=== PATIENT | male | born 1960 | race Caucasian/White ===

== ENCOUNTER 2025-03-21 15:55 | Emergency (ER) | payer BC, SELFPAY ==
--- NOTE | ~2025-03-21 | CT_ITS ---
CLINICAL HISTORY: head injury CT cervical spine without contrast Comparison: None provided Findings: There is grade 1 anterolisthesis at C7-T1. Straightening of the cervical lordosis. Vertebral body height is maintained. No acute fracture in the cervical spine. Craniocervical junction is intact. Multilevel degenerative disc disease. Foraminal stenosis at C4-5, C5-6 and C6-7. No significant central canal stenosis. Prevertebral soft tissues within normal limits. Thyroid within normal limits. Atherosclerotic vascular disease. Lung apices are clear. IMPRESSION: 1. No acute fracture in the cervical spine. 2. Grade 1 anterolisthesis C7-T1. 3. Degenerative changes with bilateral foraminal stenosis at C4-5, C5-6 and C6-7. This document has been electronically signed by: Jodee Ram MD on 03/21/2025 18:02:18
--- NOTE | ~2025-03-21 | CT_ITS ---
CLINICAL HISTORY: head injury CT head without contrast Comparison: None provided Findings: No intra-axial mass, midline shift, hydrocephalus, or acute hemorrhage. There is mild cortical atrophy. Mild nonspecific supratentorial white matter hypodensities most suggestive of chronic small-vessel ischemic changes. Atherosclerotic vascular disease. There is a mucous retention cyst/polyp in the right maxillary sinus. 5 mm osteoma in right ethmoid air cells. The orbits are within normal limits. No acute skull fracture. IMPRESSION: 1. No acute intracranial findings. 2. Nonacute findings as described. This document has been electronically signed by: Jodee Ram MD on 03/21/2025 18:24:34
[2025-03-21 16:18] VITALS: BP 179/86; PULSE 69; RESP 20; TEMP 37; O2SAT 97; BMI 30.7
--- NOTE | 2025-03-21 16:26 | ED_ITS ---
HPI - General Adult General Chief complaint: Head Injury Stated complaint: head inj Time Seen by Provider: 03/21/25 18:34 Source: patient, RN notes reviewed and old records reviewed Mode of arrival: ambulatory Limitations: no limitations History of Present Illness ED Provider: Jennifer TINEO narrative: 65-year-old male presents for evaluation of a head injury. He reports that 5 days ago on Tuesday he was in a [employer] trailer and when he stood up he struck the top of his head on a metal bar. He reports seeing stars but did not lose consciousness, did not fall to the ground pain He has not nausea vomiting, blurry vision or confusion. He reports he has had a mild headache that has been improved with Tylenol He is not anticoagulated He denies any in his symptoms or pain He reports that his doctor is out of town so he could not follow up and he is driving to [place] this weekend so he would like to be evaluated No other complaints or concerns at this time Related Data Allergies Allergy/AdvReac Type Severity Reaction Status Date / Time No Known Allergies Allergy Verified 03/21/25 16:19 Review of Systems Constitutional: Constitutional: Denies anorexia, Denies body ache(s), Denies chills, Denies fever(s), Denies frequent falls and Reports headache(s) Eyes: Eyes: Denies blurry vision ENT: Denies vertigo, Denies dizziness, Denies dry mouth and Reports headache(s) Cardiovascular: Cardiovascular: Denies chest pain and Denies dyspnea on exertion Respiratory: Respiratory: Denies cough and Denies dyspnea on exertion Gastrointestinal: Gastrointestinal: Denies abdominal pain, Denies nausea and Denies vomiting Musculoskeletal: Musculoskeletal: Denies back pain Neurologic: Denies vertigo, Denies dizziness, Denies frequent falls and Reports headache(s) Psychiatric: Psychiatric: Denies anxiety PMFSH Social History Social History Advance Directives: No Advance Directives Information Provided: Yes Physical Exam ED Vital Signs: Vital Signs - 24 hr 03/21/25 16:18 03/21/25 18:29 03/21/25 19:25 Temperature 98.6 F 98.6 F 98.6 F Pulse Rate 69 63 63 Respiratory Rate 20 18 18 Blood Pressure 179/86 H 162/69 H 162/69 H Pulse Oximetry 97 95 95 Oxygen Delivery Method Room Air Room Air Room Air BMI result Body Mass Index 30.7 Const General: healthy appearing, comfortable, no acute distress, alert and awake Nutritional Appearance: well nourished Orientation/consciousness: patient oriented x3 HENMT Head: Yes normocephalic and Yes atraumatic Eyes Eyelids: Yes eyelids normal Conjunctivae: conjunctivae normal Sclerae: sclerae normal Corneas: corneas normal Pupils: Equal, round and reactive pupils present EOM: EOMs intact bilaterally Neck Neck: Yes full ROM Resp Effort & Inspection: normal respiratory effort, able to speak in complete sentences and not labored Cardio Rate: regular rate Rhythm: regular rhythm GI Inspection: No distended Palpation (GI): Soft to palpation, not firm, nontender, no guarding and not rigid Skin General skin exam: no rashes or lesions noted and elasticity normal Neuro General: patient oriented x3 Cranial nerves: Yes CN's II-XII intact bilaterally, Yes Equal, round and reactive pupils present and Yes Bilaterally intact EOM present Cognition (Neuro): normal cognition Extrem Other: Moving all extremities well without any obvious deformities Course Course Course Narrative: RME: 65 yold male presents to the ED for evaluation after head injury that occurred this past tuesday. patient hit Medical Decision Making Medical Decision Making MDM Narrative: 65-year-old male presents for evaluation of minor head injury with a happened 5 days ago. His physical exam is benign, he has an NIH stroke score of 0. He has no objective findings of trauma, no ecchymosis, wounds or abrasions. He did have a CT scan of the brain and CT of the cervical spine, both of which was unremarkable. Given that the patient's symptoms are mild, he has no neuro deficits in his injury was 5 days ago with normal imaging, the patient is stable for discharge. He is comfortable with this plan Differential Diagnosis Differential Diagnoses: The differential diagnosis associated with the presentation includes Minor head injury Concussion Intracranial hemorrhage Calvarial fracture Radiology Impression Discussion of test interpretation with radiology: I have reviewed the radiologist's reading. Radiologist Impression: Findings: No intra-axial mass, midline shift, hydrocephalus, or acute hemorrhage. There is mild cortical atrophy. Mild nonspecific supratentorial white matter hypodensities most suggestive of chronic small-vessel ischemic changes. Atherosclerotic vascular disease. There is a mucous retention cyst/polyp in the right maxillary sinus. 5 mm osteoma in right ethmoid air cells. The orbits are within normal limits. No acute skull fracture. IMPRESSION: 1. No acute intracranial findings. 2. Nonacute findings as described. This document has been electronically signed by: Jodee Ram MD on 03/21/2025 18:24:34 Findings: There is grade 1 anterolisthesis at C7-T1. Straightening of the cervical lordosis. Vertebral body height is maintained. No acute fracture in the cervical spine. Craniocervical junction is intact. Multilevel degenerative disc disease. Foraminal stenosis at C4-5, C5-6 and C6-7. No significant central canal stenosis. Prevertebral soft tissues within normal limits. Thyroid within normal limits. Atherosclerotic vascular disease. Lung apices are clear. IMPRESSION: 1. No acute fracture in the cervical spine. 2. Grade 1 anterolisthesis C7-T1. 3. Degenerative changes with bilateral foraminal stenosis at C4-5, C5-6 and C6-7. This document has been electronically signed by: Jodee Ram MD on 03/21/2025 18:02:18 Discharge Plan Discharge Clinical Impression: Closed head injury Patient Disposition: Home, Self-Care Instructions: Head Injury (ED) Additional Instructions: your CT scan did not show any evidence of traumatic brain injury. You also had a CT scan of your cervical spine is not show any abnormalities. You may continue ibuprofen/ Tylenol as needed for any headaches or pain pain Follow up with your primary doctor, return for new or worsening symptoms Interventions: ED Discharge Assessment Last Done: 03/21/25 19:25 Discharge Date/Time: 03/21/25 19:26 Print Language: Greek
[2025-03-21 18:29] VITALS: BP 162/69; PULSE 63; RESP 18; TEMP 37; O2SAT 95
--- OUTSIDE RECORDS SUMMARY | 2025-03-21 18:58 | XMS_ITS | Patient Health Record ---
Author Organization [facility] Address [address] [place] [address] Care Team Providers Care Private Equity Analyst Name Role Phone Sho Salinas MD Primary Care Provider Unav ailable Josue Jaimes Unavailable [phone] Allergies Allergen (clinical drug ingredient) Drug/Non Drug Allergy documented on EMR Reaction Allergy Type Onset Date Status povidone-iodine Betadine anaphylaxis Drug Allergy Active Ceftin GI upset Drug Allergy Active Keflex GI upset Drug Allergy Active Dust Mite Mixed Allergen Ext sneezing Drug Allergy Active Lamisil Unknown Drug Allergy Active cefaclor Cefaclor GI upset Drug Allergy Active Latex Latex itching Allergy Active Mold hives Allergy Active Results Component Value Reference Range Notes HEMOGLOBIN A1C (GLYCOHEMOGLO BIN) Reviewed date:10/12/2024 09:36:08 AM Interpretation: Performing Lab: Notes/Report: HEMOGLOBIN A1C % (HH) 6.2 HEMOGLOBIN A1C (GLYCOHEMOGLO BIN) Reviewed date:01/22/2025 09:06:38 AM Interpretation: Performing Lab: Notes/Report: HEMOGLOBIN A1C % (HH) 6.2 Reason For Referral Diagnosis 1 Tinea unguium (B35.1 ) Diagnosis 2 Pain in right toe(s) (M79.674) Diagnosis 3 Pain in left toe(s) (M79.675) Referring Provider First Name Sho Referring Provider Last Name Brad [facility] Referred Provider Josue Jaimes Referred Address [address] [facility],[place], [place],[address], Referred Provider Specialty Podiatry Referral Priority Routine Medications Medication SIG (Take, Route, Frequency, Duration) Notes Start Date End Date Status Flomax Active Kerasal Ultra20 20-5 % as directed Exter martha bid; Duration: 30 days 08/15/2012 Not-Eduarda larkin First Aid ointment Active Vitamin D 1000 UNIT 1 tablet Orally Once a day; Duration: 30 day(s) Active ZyrTEC PRN Active Losartan Potassium 50 MG TAKE ONE TABLET BY MOUTH EVERY MORNING Oral; Duration: 90 Days Active glipiZIDE ER 2.5 MG Oral; Duration: 90 Days Active Extra Depth Orthopedic Shoes (1 Pair) with Customized Heat Molded Multidensity Innersoles (3 Pair) as directed Dx: NIDDM (E11.9), Hammertoe Foot Deformity (M20.41,M20.42), Preulcerative Skin Lesion(s) (L85.1) 10/12/2024 Active Ammonium Lactate 12 % 1 application to affected area Externally to feet Twice a day; Duration: 30 days Not-Taking Mucinex Active Clotrimazole-Betametha sone 1-0.05 % 1 application to affected area Externally Twice a day to affected areas on feet; Duration: 30 days 11/16/2016 Not-Takmary ng Atorvastatin Calcium Active Singulair 5 MG 1 tablet at bedtime Orally Once a day; Duration: 30 day(s) Not-Taking amLODIPine Besylate 5 MG Orally Active Spiriva HandiHaler 18 MCG 1 capsule Inhalation Once a day Not-Taking Immunizations Vaccine Route Administration Date Status Comme nts Influenza Unknown 03/27/2021 Administered Influenza Unknown 01/22/2024 Administered COVID-19 Moderna Vaccine Unknown 04/30/2021 Administered 1st 08/01/2020 2nd 09/04/2020 Social History Tobacco Use: Social History Observation Description Date Details (start date - stop date) Never Smoker NA - NA Tobacco Use/Smoking Question Answer Notes Are you a: nonsmoker Tobacco use other than smoking: Question Answer Notes Are you an other tobacco user? No AUDIT-C (Standard) Question Answer Notes Did you have a drink containing alcohol in the p ast year? No Points 0 Interpretation Negative Problems Problem Type SNOMED Code ICD Code Onset Dates Problem Status W/U Status Risk Notes Problem Acquired hammer toe of right foot (614840901410261 5) Other hammer toe(s) (acquired), right foot (M20.41) Active confirmed Problem Acquired hammer toe of left foot (307772479958774 3) Other hammer toe(s) (acquired), left foot (M20.42) Active confirmed Problem Type II diabetes mellitus without complication (746268140) Type 2 diabetes mellitus without complication (E11.9) Active confirmed Vital Signs Blood pressure diastolic 80 mm Hg 01/22/2025 Height 5ft7.5in in 01/22/2025 Blood pressure systolic 125 mm Hg 01/22/2025 Weight 203 lbs 01/22/2025 BMI 31.32 kg/m2 01/22/2025 Procedures Procedure Date Ordered Date Performed Result Body Sit e 85098-OZGZUNT NAIL, 6 OR MORE 10/12/2024 N/A 96587-IDONSJH NAIL, OR MORE 01/22/2025 N/A Encounters Encounter Location Date Provider Diagnosis [address] [address] 10/12/2024 Josue Jaimes Pain in right toe(s) M79.674 ; Tinea unguium B35.1 ; Pain in left toe(s) M79.675 ; Type 2 diabetes mellitus without complication E11.9 ; Other hammer toe(s) (acquired), right foot M20.41 and Other hammer toe(s) (acquired), left foot M20.[address] [address] 01/22/2025 Josuelauri Jaimes Pain in right toe(s) M79.674 ; Tinea unguium B35.1 ; Pain in left toe(s) M79.675 and Type 2 diabetes mellitus without complication E11.[address] [address] 11/30/2024 Josue Jaimes Assessments Encounter Date Diagnosis (ICD Code) Assessment Notes Treatment Notes Treatment Clinical Notes Section Notes 10/12/2024 Pain in right toe(s) (ICD-10 - M79.674) 01/22/2025 Pain in right toe(s) (ICD-10 - M79.674) 01/22/2025 Tinea unguium (ICD-10 - B35.1) 01/22/2025 Pain in left toe(s) (ICD-10 - M79.675) 10/12/2024 Tinea unguium (ICD-10 - B35.1) 10/12/2024 Pain in left toe(s) (ICD-10 - M79.675) 10/12/2024 Type 2 diabetes mellitus without complication (ICD-10 - E11.9) 01/22/2025 Type 2 diabetes mellitus without complication (ICD-10 - E11.9) 10/12/2024 Other hammer toe(s) (acquired), right foot (ICD-10 - M20.41) Patient Educated with: DIABETIC FOOT CARE INSTRUCTIONS.p df (DIABETIC FOOT CARE INSTRUCTIONS.p df) 10/12/2024 Other hammer toe(s) (acquired), left foot (ICD-10 - M20.42) Plan Of Treatment Pending Test Test Name Order Date 18606-AYUJIJQ NAIL, 6 OR MORE 04/02/2011 18615-CZFHOMM NAIL, 6 OR MORE 07/02/2011 79796-QNVDVLO NAIL, 6 OR MORE 08/27/2011 30269-ZKVEHFJ NAIL, 6 OR MORE 11/02/2011 84206-EWDFEGW NAIL, 6 OR MORE 02/04/2012 05299-ELTZPWL NAIL, 6 OR MORE 05/05/2012 10243-KYRVGUZ NAIL, 6 OR MORE 08/15/2012 56959-GRHVSRR NAIL, 6 OR MORE 11/17/2012 75055-BDPWYIV NAIL, 6 OR MORE 02/20/2013 29165-GYFKRHW NAIL, 6 OR MORE 06/12/2013 97657-FUFYSME NAIL, 6 OR MORE 09/18/2013 58100-HCLTYNF NAIL, 6 OR MORE 12/11/2013 46380-NGGFVUB NAIL, 6 OR MORE 03/12/2014 00412-UWSIYXX NAIL, 6 OR MORE 06/21/2014 49726-LABEPUK NAIL, 6 OR MORE 09/20/2014 55039-FOAALVD NAIL, 6 OR MORE 12/20/2014 33698-PKNJTYO NAIL, 6 OR MORE 08/05/2015 41566-EKARHIP NAIL, 6 OR MORE 11/07/2015 42145-TICCXHI NAIL, 6 OR MORE 02/06/2016 96544-BXEQOOR NAIL, 6 OR MORE 05/07/2016 37776-LRIBXAN NAIL, 6 OR MORE 08/13/2016 85274-RJKSKNO NAIL, 6 OR MORE 11/16/2016 86995-NHQSEMW NAIL, 6 OR MORE 02/15/2017 31420-HFIDBNC NAIL, 6 OR MORE 05/10/2017 84945-UGFLAAW NAIL, 6 OR MORE 09/20/2017 52508-AJWLYJQ NAIL, 6 OR MORE 12/20/2017 03309-QQHJDGI NAIL, 6 OR MORE 03/24/2018 34999-VVTDTTR NAIL, 6 OR MORE 06/30/2018 76667-ZEOKBFT NAIL, 6 OR MORE 10/10/2018 68112-IGVUIZF NAIL, 6 OR MORE 02/06/2019 47704-OONREDK NAIL, 6 OR MORE 07/13/2019 06067-ERWFCLW NAIL, 6 OR MORE 11/13/2019 83257-ZACWZDQ NAIL, 6 OR MORE 02/12/2020 44456-PYXBGDV NAIL, 6 OR MORE 08/15/2020 65837-BUGTNZA NAIL, 6 OR MORE 11/14/2020 70659-HWECROH NAIL, 6 OR MORE 04/03/2021 53258-NYLMCFF NAIL, 6 OR MORE 07/03/2021 83650-CIPXRBT NAIL, 6 OR MORE 10/16/2021 66585-ETNNONP NAIL, 6 OR MORE 01/05/2022 20781-ZNNJGTH NAIL, 6 OR MORE 10/12/2024 64963-KDVGKCN NAIL, 6 OR MORE 01/22/2025 82993-LGIKQDM NAIL, 6 OR MORE 04/11/2015 66666-Krcb Destruction, 1-14 06/21/2014 59060-Oeor Destruction, -14 03/12/2014 07529-Wevk Destruction, 1-14 12/11/2013 22775-Lfqf Destruction, 1-14 09/18/2013 95279-Kcbgrony Plate 11/02/2011 07598-Tjjymlku Plate 09/18/2013 31395-Gkzykufv Plate 06/12/2013 53718-Olyokdfw Plate 12/11/2013 12650-Ftaxyibh Plate 03/12/2014 58842-Jyaltmxn Plate 06/21/2014 74584-Bootzars Plate 12/20/2014 07597-Rvsocevh Plate 09/20/2014 07222-Vbywggli Plate 04/11/2015 84285-Zdpgeqtk Plate Each Additional 38073-Dlubwbtp Plate Each Additional 31927-Rwoxavlq Plate Each Additional 34436-Dkqamfbs Plate Each Additional 49730-Vmlqchyh Plate Each Additional 69299-Qjwowyay Plate Each Additional 53933-Srhbvlxl Plate Each Additional 04/2012 38798 I&D ABSCESS- SIMPLE,SINGLE 013 Next Appt Details Provider Name:Josue Lorenzo WahlFiona , 05/03/2025 10:00:00 AM, [address] [place], [address], Insurance Providers Payer Name Payer Address Payer Phone Subscriber Number Group Number Insured Name Patient Relationship to Insured Coverage Start Date Coverage End Date [facility] [address] [place] [address] [id number] [place] do Self - patient is the insured Medical (General) History Medical History History ICD Code asthma psoriasis/eczema measles mumps chicken pox Surgical History Surgery Date(Month/Year) urinary surgery 1996
[2025-03-21 19:25] VITALS: BP 162/69; PULSE 63; RESP 18; TEMP 37; O2SAT 95
== END 2025-03-21 19:26 | disposition home or self-care (01) ==
PROVIDERS: Emergency Provider Student in an Organized Health Care Education/Training Program; PCP Internal Medicine
DX: S09.90XA Unspecified injury of head, initial encounter (principal); W22.8XXA Striking against or struck by other objects, initial encounter; Y93.89 Activity, other specified; Y92.89 Other specified places as the place of occurrence of the external cause; Y99.8 Other external cause status
CPT/HCPCS: 70450; 72125; 99283; 99284

== ENCOUNTER → 2025-03-21 16:22 | Outpatient (BNV) | payer BC, SELFPAY | PROVIDERS: PCP Internal Medicine; Visit Provider Specialist | DX: S09.90XA Unspecified injury of head, initial encounter (principal) | CPT/HCPCS: 70450; 72125 ==